=== PATIENT | female | born 1940 | race Caucasian/White ===

== ENCOUNTER 2017-03-01 03:49 | Emergency (ER) | payer MEDICARE ==
--- NOTE | 2017-03-01 04:28 | ERNOTE ---
Chest Pain/Cardiac HPI Chief Complaint: Tachycardia Time Seen by Provider: 03/01/17 04:19 Source: patient Exam Limitations: no limitations Immunizations: IMMUNIZATION HX Immunizations Up to Date Yes History of Influenza Vaccine Yes Hx Pneumococcal Vaccination Yes Allergies/Adverse Reactions: Allergies diphenhydramine HCl [From Benadryl] Allergy (Severe, Verified 08/29/16 02:01) Sulfa (Sulfonamide Antibiotics) Adverse Reaction (Verified 10/17/14 20:50) Home Medications: HOME MEDICATIONS Multivitamin [Multi-Vitamin Daily] 1 tab PO DAILY 10/15/14 [Last Taken 03/01/17] Omeprazole [Prilosec] 40 mg PO DAILY 10/15/14 [Last Taken 03/01/17] Potassium Chloride [K-Dur] 20 meq PO DAILY 10/15/14 [Last Taken 03/01/17] Ibuprofen [Motrin] 600 mg PO Q6H PRN 10/26/14 [Last Taken 03/01/17] Losartan/Hydrochlorothiazide [Hyzaar 50-12.5 Tablet] 1 each PO DAILY 10/26/14 [ Last Taken 03/01/17] Warfarin Sodium [Coumadin] 2 mg PO DAILY 10/26/14 [Last Taken 03/01/17] Fluticasone Propionate [Flonase] 2 spray NS BID 04/09/15 [Last Taken 03/01/17] Metoprolol Tartrate [Lopressor] 50 mg PO BID 04/09/15 [Last Taken 03/01/17] Cholecalciferol (Vitamin D3) [Vitamin D3] 2,000 unit PO DAILY #100 tablet [Last Taken 03/01/17] Cranberry Fruit Extract [Cranberry] 500 mg PO BID 08/29/16 [Last Taken 03/01/17] Flecainide Acetate [Tambocor] 50 mg PO BID #.1 tablet 08/29/16 [Last Taken 03/01] Levothyroxine Sodium [Synthroid] 50 mcg PO DAILY@0700 #60 tablet 08/29/16 [Last Taken 03/01/17] Melatonin 8 mg PO HS 08/29/16 [Last Taken 03/01/17] Nitrofurantoin Macrocrystal [Macrodantin] 100 mg PO BID 03/01/17 [Last Taken ] Narrative: Pt woke up with palpitations around 01:00. She waited to see if it would go away but when it persisted she took an extra flecanide. This did not help and she presented to the ED. Timing: constant Severity/Quality: moderate, pressure Location: other - supra sternal Chest Pain Radiation: no radiation Activities at Onset: sleep Modifying Factors - Improves: Present: nothing Modifying Factors - Worsens: Present: nothing Associated Symptoms: Present: denies symptoms Prior Chest Pain/Cardiac Workup: Reports: other - had a-fib the previous time she had symptoms similar to this Review of Systems - Review of Systems Constitutional: Present: recent illness - UTI, fatigue EYE: Present: no symptoms reported ENT: Present: no symptoms reported Respiratory: Present: shortness of breath Cardiology: Present: See HPI, palpitations Gastrointestinal/Abdominal: Present: no symptoms reported Genitourinary: Present: dysuria - has been treated for UTI x 2 lately Musculoskeletal: Present: no symptoms reported Skin: Present: no symptoms reported Neurological: Present: no symptoms reported Endocrine: Present: no symptoms reported Hematologic/Lymphatic: Present: no symptoms reported Psych: Present: no symptoms reported - Patient's Past Medical History Patient History - Medical: Anxiety, Arthritis, Cataracts, GERD, Hypothyroidism, Kidney stone, UTI'S Patient History - Cardiac/Respiratory: Atrial Fibrillation Patient History - Cancer: No Hx of Cancer Patient History - Surgical Procedures: Hysterectomy, Other Patient History - Other: None - Family History Father Family History - Cardiac/Respiratory: CHF - Social History Living Situations: alone Abuse History: No History of abuse Psych History: No pertinent hx Smoking Status: Never smoker Have you smoked in the past 12 months: No Do you dip or chew tobacco: No Alcohol Use: none Drug Use: none - Immunizations Immunizations Up to Date: Yes Hx Pneumococcal Vaccination: Yes History of Influenza Vaccine: Yes Physical Exam - Physical Exam General Appearance: Present: wd/wn, alert, no apparent distress Eye Exam: Normal inspection: bilateral, PERRL: bilateral Ears, Nose, Throat: Present: normal ENT inspection Neck: Present: normal inspection, nontender Respiratory: Present: no respiratory distress, normal breath sounds Cardiovascular/Chest: Present: no murmur, other - frequent premature beats Gastrointestinal/Abdominal: Present: normal bowel sounds, nontender Extremity Exam: Present: normal inspection, normal range of motion Neurological Exam: Present: alert, oriented, normal mood/affect Skin Exam: Present: normal color, warm/dry ED Progress - Results and Orders Patient's Lab Results:: I have reviewed the patient's lab results. Results and Orders: Laboratory Tests 03/01/17 03/01/17 04:37 04:37 WBC 6.0 Hgb 12.2 L Hct 34.6 L Plt Count 205 Neutrophils % 81.0 H Sodium 126 L Potassium 3.8 Chloride 92 L Carbon Dioxide 24.1 Anion Gap 13.7 BUN 17 Creatinine 1.07 Est GFR (Non-Af Amer) 53 L BUN/Creatinine Ratio 15.9 Random Glucose 98 Calcium 8.7 Calcium Adj for Albumin 9.2 Total Bilirubin 0.7 AST 27 ALT 29 Alkaline Phosphatase 78 Troponin I Less than 0.017 Total Protein 6.3 Albumin 3.0 L TSH 1.626 - Vital Signs Patient's Vital Signs:: I have reviewed the patient's vital signs. Vital Signs: Vital Signs 03/01/17 03/01/17 03:53 04:08 Temperature 36.7 C Pulse Rate 93 80 Respiratory 18 18 Rate Blood Pressure 170/92 152/89 O2 Sat by Pulse 94 95 Oximetry - EKG EKG: NSR, other - frequent premature supraventricular contractions EKG read: Interp. by me - Progress/Reassessment Chief Complaint: Tachycardia Progress Note-Subjective: 03/01/17 05:42 discussed her recent UTI that has been difficult to treat may be part of the cause of her palpitations but that she was not in a-fib today. She is able to take an extra flecanide if she has any palpitations and I encouraged her to check her BP and pulse when she does that. The friend with her today is a nurse and has been watching that. Departure - Departure Clinical Impression: Palpitations Disposition: Home Follow Up Needed Condition: Good Instructions: Palpitations, [id number] Additional Instructions: See your biometry teacher to discuss if you need to change any of your medications. You may use salt in moderation. Continue to take medications for your UTI. Referrals: Marleny Kidd, FLOOR C[employer]ING PRINTER [Primary Care Provider] -
[2017-03-01 04:36] LABS: Hematocrit 34.6 % (37.0-47.0); Hemoglobin 12.2 gm/dL (12.5-16.0); Mean Cell Volume 89.6 fl (78-100); Mean Corpuscular Hemoglobin 31.6 pg (27-31); Mean Corpuscular Hgb Conc 35.3 g/dl (32-36); Mean Platelet Volume 9.1 fl (6.0-9.5); Neutrophil # 4.9 K/mm3 (1.3-6.0); Platelet Count 205 K/mm3 (150-450); Red Blood Count 3.86 M/mm3 (4.2-5.4); Red Cell Distribution Width 12.9 % (11.5-14.0)
[2017-03-01 04:54] LABS: Troponin I Less than 0.017 ng/ml (0.00-0.10)
[2017-03-01 04:58] LABS: ALT 29 U/L (19-67); AST 27 U/L (0-48); Alkaline Phosphatase * 78 U/L (50-170); Anion Gap 13.7 mmol/L (6.8-13.8); BUN/Creatinine Ratio 15.9 (9.0-21.6); Bilirubin, Total 0.7 mg/dL (0.0-1.1); Blood Urea Nitrogen 17 mg/dL (3-23); Ca. Corrected For Albumin 9.2 mg/dL (8.4-10.2); Calcium * 8.7 mg/dL (7.9-10.9); Carbon Dioxide 24.1 mmol/L (24-32.6); Chloride 92 mmol/L (97-106); Glucose * 98 mg/dL (70-110); Potassium 3.8 mmol/L (3.4-4.6); Sodium 126 mmol/L (132-142); TSH * 1.626 uIU/mL (0.358-3.74); Total Protein 6.3 gm/dL (6.2-8.2)
[2017-03-01 05:57] VITALS: BP 118/78
== END 2017-03-01 05:45 | disposition home or self-care (01) ==
LOC: ER 03:49
DX: R00.2 Palpitations (principal); Z87.440 Personal history of urinary (tract) infections; Z87.442 Personal history of urinary calculi; K21.9 Gastro-esophageal reflux disease without esophagitis; I48.91 Unspecified atrial fibrillation; E03.9 Hypothyroidism, unspecified; Z79.01 Long term (current) use of anticoagulants